=== PATIENT | male | born 1980 | race Caucasian/White ===

== ENCOUNTER → 2016-11-07 | Outpatient (CLI) | payer OTHER ==
[~2016-11-07] VITALS: Ht 185.4 cm; Wt 99.1 kg
[~2016-11-07] MED LIST: BUPRENORPHIN-N1 EACH SL; EFFEXOR XR75 MG PO; HYDROCODON-ACE1 EAC5 PO; IBUPROFEN 200200 M1 PO; MINOCIN50 MG PO; NORCO 10-325 T1 EACH PO; PREVACID30 MG PO; SUBOXONE 4 MG-1 EACH SL
--- NOTE | ~2016-11-07 | HPC ---
[facility] [place] [place] [address] PAIN MANAGEMENT CONSULTATION Name: ALEX MASON Room #: REG Seema [place]#: [id number] Admission: 11/07/16 Attend Phys: Yovani Carranza DO Discharge: Date of : 81 Report #: [id number] THIS REPORT FOR: //name// CC: Avis Carranza SUBJECTIVE: The patient is a very pleasant 36-year-old gentleman being treated for chronic pain syndrome requiring complex medication management status post multiple surgeries, left lower extremity. The patient has been stable on Suboxone 01/01, one-half tablet 3 times a day, limit 45 tablets/strips per month. Last urine drug screen 10/27/2015, was positive for prescribed medications. The patient prior had trouble with opiate habituation following surgeries, again he has had about 6 surgeries since the year 1999. Presently, he is doing remarkably well. Stable on current medications, physically active. He has 2 young children. He and his recently [place] a home [place]. With increased activities of moving has a little bit of increased pain in the ankle, though range of motion in that ankle is near normal. I gave the patient credit for doing physical therapy in rehab following the surgeries. He notes current medications are helpful, notes pain increases with activity, but he averages his pain a 5 on a 0-10 visual analog scale, describes it burning, aching sensation, primarily about the left foot and ankle. PHYSICAL EXAMINATION: Relatively unchanged, 36-year-old gentleman, BMI is 38.8 kilograms per meter squared. Vital signs stable. Gait is modestly antalgic. Again, fairly good range of motion in that left ankle, has a little bit of hyperpathia and allodynia. We reviewed the fact that opiate medications are being used to provide analgesia adequate to support activities of daily living, not attempting to achieve a specific pain score on the 0-10 Visual Analog Scale. The current opiate medications are providing sufficient analgesia to allow the patient to participate in activities of daily living. The patient is not exhibiting any aberrant behavior suggestive of drug diversion. The patient is not having any adverse reactions to medications. The patient is not suffering from daytime somnolence or mental acuity changes. The patient is managing opiate-induced constipation with appropriate pfac-oke-ujusmxh agents and dietary considerations. The patient was counseled on concern for caution with operating a motor vehicle while using opiate medications. A physical exam was performed and the patient's functional status was evaluated. All patients with back pain were advised against the bed rest greater than 4 days and were advised to return to normal activities. Pain score assessment was [address] [address] PAIN MANAGEMENT CONSULTATION Name: ALEX MASON [id number] Admission: 11/07/16 Attend Phys: Yovani Carranza DO Discharge: Date of : 81 Report #: [id number] noted and the treatment plan was reviewed with the patient. All current medications, both prescribed and OTC were reviewed and reconciled on the electronic medical record. Tobacco screening was accomplished and smoking cessation was advised when indicated. BMI was noted and diet/exercise modification was recommended for all patients following outside normal parameters. I reviewed with the patient today their responsibilities to safeguard prescription medications, reviewed their responsibility to utilize medications only as prescribed by the physician. They are to seek and receive pain medications only from 1 physician group ( [facility]). They are to use 1 pharmacy and keep the clinic informed if they change pharmacies. Their responsibilities include making followup visits in a timely fashion and to avoid abrupt discontinuation of medication usage. Their responsibilities further include bringing their medications (bottles from the pharmacy with residual pills) to the visit for possible confirmation of pill counts and the patient understands it is their responsibility to submit to random drug screens to ensure both that the medications prescribed are present, and that no other controlled substances are present. All prescriptions provided today were generated electronically. ASSESSMENT: Chronic pain syndrome requiring complex medication management, left lower extremity, gentleman with prior opiate habituation issues, very stable on current medication. RECOMMENDATIONS: 1. Urine drug screen today. No aberrant behavior suggestive for drug diversion, simply complying with our opiate consent to treat contract. 2. Renew current medication unchanged, Suboxone /, one-half three times a day, limit 45 tablets for 30 days. Film strip or tablet acceptable depending on insurance coverage. We reviewed opiate consent to treat contract. The patient is doing well currently. I spent a prolonged visit with the patient approximately 29 minutes from 11:21 to 11:50. The patient was discharged in good and stable condition. <ELECTRONICALLY SIGNED> By: Yovani Carranza DO 11/08/16 0948 [id number] Yovani Carranza DO /nt
[2016-11-07 11:15] VITALS: BP 117/85
== END | disposition home or self-care (01) ==
LOC: PAIN 06:59
DX: G89.4 Chronic pain syndrome (principal); Z98.890 Other specified postprocedural states; Z87.891 Personal history of nicotine dependence

== ENCOUNTER → 2017-02-06 | Outpatient (CLI) | payer OTHER ==
--- NOTE | ~2017-02-06 | HPC ---
[facility] [place] [address] [place] [address] PAIN MANAGEMENT CONSULTATION Name: ALEX MASON Room #: REG [facility] [place]#: [id number] Admission: 02/06/17 Attend Phys: Yovani Carranza DO Discharge: Date of : 81 Report #: [id number] THIS REPORT FOR: //name// CC: Avis Carranza The patient is a very pleasant 36-year-old gentleman, long treated for left lower extremity neuropathic pain, requiring high risk complex medication management. He initially presented to our clinic in May 2014, taking hydrocodone, but having a difficult time weaning off. He was referred to me in June 2014. We rotated to Suboxone. He has come down to 12 mg a day (1/2 Suboxone 8/2 three times a day). With this, he has been remarkably functional. Notes pain is generally about a 3 on a VAS. He is able to participate in activities of daily living. 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 He is . He is an active and involved parent. Notes that he does have difficulty sleeping due to pain, but he ices the ankle and with Suboxone, he has done reasonably well. He started to do increasing physical activity. He has been going to the gym, doing some circuit training. With the left ankle is a little difficult to do a lot of cardio work, i.e., treadmill or bicycle, but again with rapid circuit training, he does get his heart rate up. We reviewed the fact that opiate medications are being used to provide analgesia adequate to support activities of daily living, not attempting to achieve a specific pain score on the 0-10 Visual Analog Scale. The current opiate medications are providing sufficient analgesia to allow the patient to participate in activities of daily living. The patient is not exhibiting any aberrant behavior suggestive of drug diversion. The patient is not having any adverse reactions to medications. The patient is not suffering from daytime somnolence or mental acuity changes. The patient is managing opiate-induced constipation with appropriate fosp-jim-qlcqlaz agents and dietary considerations. The patient was counseled on concern for caution with operating a motor vehicle while using opiate medications. A physical exam was performed and the patient's functional status was evaluated. All patients with back pain were advised against the bed rest greater than 4 days and were advised to return to normal activities. Pain score assessment was noted and the treatment plan was reviewed with the patient. All current medications, both prescribed and OTC were reviewed and reconciled on the electronic medical record. Tobacco screening was accomplished and smoking cessation was advised when indicated. BMI was noted and diet/exercise modification was recommended for all patients following outside normal parameters. I reviewed with the patient today their responsibilities to safeguard prescription medications, reviewed their responsibility to utilize medications [address] [address] PAIN MANAGEMENT CONSULTATION Name: ALEX MASON Room #: REG [facility] [place]#: [id number] Admission: 02/06/17 Attend Phys: Yovani Carranza DO Discharge: Date of : 81 Report #: [id number] only as prescribed by the physician. They are to seek and receive pain medications only from 1 physician group ([facility]). They are to use 1 pharmacy and keep the clinic informed if they change pharmacies. Their responsibilities include making followup visits in a timely fashion and to avoid abrupt discontinuation of medication usage. Their responsibilities further include bringing their medications (bottles from the pharmacy with residual pills) to the visit for possible confirmation of pill counts and the patient understands it is their responsibility to submit to random drug screens to ensure both that the medications prescribed are present, and that no other controlled substances are present. All prescriptions provided today were generated electronically. PHYSICAL EXAMINATION: Otherwise unchanged, a 36-year-old gentleman, 6 feet 1 inch, 221 pounds, blood pressure 137/95, pulse 80s, and respirations are 18. He is alert and oriented to person, place, and time, judged to be a reasonable historian. Rises from chair easily. Gait is nominally antalgic. He actually has pretty good range of motion in the left ankle, albeit limited. Pain with range of motion. Urine drug screen at last visit 11/07/2016, was positive for prescribed medications. ASSESSMENT: Left lower extremity neuropathic pain requiring high risk complex medication management, stable on Suboxone 8/2, one half tablet 3 times a day, sub lingual. I have taken the liberty of writing for 3 months of current medication, follow up at that time, earlier if needed. <ELECTRONICALLY SIGNED> By: Yovani Carranza DO 02/07/17 0705 [id number] [id number] Yovani Carranza DO /nt
== END ==
LOC: PAIN 07:02
DX: M25.572 Pain in left ankle and joints of left foot (principal)

== ENCOUNTER → 2017-05-15 | Outpatient (CLI) | payer OTHER ==
[~2017-05-15] VITALS: Ht 185.4 cm; Wt 104.2 kg
--- NOTE | ~2017-05-15 | HPC ---
[facility] [place] [address] [place] [address] PAIN MANAGEMENT CONSULTATION Name: ALEX MASON Room #: REG [facility] [place]#: [id number] Admission: 05/15/17 Attend Phys: Yovani Carranza DO Discharge: Date of : 81 Report #: [id number] THIS REPORT FOR: //name// CC: Avis Carranza The patient is a very pleasant 36-year-old gentleman, whom I have treated for some time now, I believe came in to our care 03/03/2014. He has had chronic pain in his left ankle, status post multiple surgeries. He had had trouble with some opiate habituation and he has been remarkably stable on Suboxone now for several years. He uses 8/2 film strips that he cuts in half to quarter, uses this t.i.d. Last seen in pain clinic 02/06/2017. His last random urine drug screen was in 10/2015, positive for prescribed medications. We did order a buccal drug screen today. No aberrant behavior suggestive for drug diversion, simply complying with our opiate consent to treat contract. We reviewed the fact that opiate medications are being used to provide analgesia adequate to support activities of daily living, not attempting to achieve a specific pain score on the 0-10 Visual Analog Scale. The current opiate medications are providing sufficient analgesia to allow the patient to participate in activities of daily living. The patient is not exhibiting any aberrant behavior suggestive of drug diversion. The patient is not having any adverse reactions to medications. The patient is not suffering from daytime somnolence or mental acuity changes. The patient is managing opiate-induced constipation with appropriate cicz-nuo-rzjtofj agents and dietary considerations. The patient was counseled on concern for caution with operating a motor vehicle while using opiate medications. A physical exam was performed and the patient's functional status was evaluated. All patients with back pain were advised against the bed rest greater than 4 days and were advised to return to normal activities. Pain score assessment was noted and the treatment plan was reviewed with the patient. All current medications, both prescribed and OTC were reviewed and reconciled on the electronic medical record. Tobacco screening was accomplished and smoking cessation was advised when indicated. BMI was noted and diet/exercise modification was recommended for all patients following outside normal parameters. I reviewed with the patient today their responsibilities to safeguard prescription medications, reviewed their responsibility to utilize medications only as prescribed by the physician. They are to seek and receive pain medications only from 1 physician group ( [facility]). They are to use 1 pharmacy and keep the clinic informed if they change pharmacies. Their responsibilities include making followup visits in a timely fashion and to avoid abrupt discontinuation of medication usage. Their responsibilities further include bringing their medications (bottles from the pharmacy with residual pills) to the visit for possible confirmation of pill counts and the patient [address] [address] PAIN MANAGEMENT CONSULTATION Name: ALEX MASON Room #: REG [facility] [place]#: [id number] Admission: 05/15/17 Attend Phys: Yovani Carranza DO Discharge: Date of : 81 Report #: [id number] understands it is their responsibility to submit to random drug screens to ensure both that the medications prescribed are present, and that no other controlled substances are present. All prescriptions provided today were generated electronically. PHYSICAL EXAMINATION: Shows a 36-year-old gentleman, BMI is 30.3 kg per meter squared. Subjective pain score is 5 on a VAS. Pain is in the left ankle and foot, exacerbated with standing, walking and cold weather. Rises using armrest, modestly antalgic gait. Limited range of motion of the ankle, though remaining physical exam was unremarkable, vital signs stable as noted in the EMR. Does not use tobacco products. ASSESSMENT: Symptomatic chronic pain syndrome, left lower extremity with neuropathic pain, requiring high risk complex medication management. RECOMMENDATION: 1. Buccal swab as noted above. 2. Continue baseline medication including Suboxone 01/01 one-half t.i.d., dispensed 45 film strips. Follow up in 3 months for reevaluation. The patient is not currently in therapy. He had gone to . 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 He is . He is an active parent. In fact, just had a vasectomy after the of his son, now 2 months ago. He has, I believe, 4 and 8-year-old children at home. <ELECTRONICALLY SIGNED> By: Yovani Carranza DO 05/21/17 0808 [id number] Yovani Carranza DO /nt
[2017-05-15 13:46] VITALS: BP 129/80
== END ==
LOC: PAIN 07:11
DX: G89.4 Chronic pain syndrome (principal); M25.572 Pain in left ankle and joints of left foot; M79.2 Neuralgia and neuritis, unspecified; F11.20 Opioid dependence, uncomplicated; Z98.890 Other specified postprocedural states; Z79.899 Other long term (current) drug therapy

== ENCOUNTER → 2017-07-31 | Outpatient (CLI) | payer OTHER ==
[~2017-07-31] VITALS: Ht 188 cm; Wt 94.3 kg
--- NOTE | ~2017-07-31 | HPC ---
[facility] [place] [address] [place] [address] PAIN MANAGEMENT CONSULTATION Name: ALEX MASON Room #: REG [facility] [place]#: [id number] Admission: 07/31/17 Attend Phys: Yovani Carranza DO Discharge: Date of : 81 Report #: [id number] THIS REPORT FOR: //name// CC: Avis Carranza DATE OF SERVICE: 07/31/2017 The patient is a 36-year-old gentleman, well known to the [facility], being treated for chronic left ankle pain, status post multiple surgeries, requiring complex medication management with prior history of fairly aggressive opiate use in the past and difficulty with weaning. Last visit, we did a random buccal swab (05/15/2017), which was positive for buprenorphine and naloxone. Negative for any other medication. The patient notes today, medications continue to provide sufficient analgesia to participate in activities of daily living, rates the pain a 3 on a VAS, notes walking and standing exacerbate pain. Weather changes seem to make pain a little worse. Pain seems to be worse in the evening. To patient's credit, he has continued to be physically active. 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 He is an active and engaged parent. He tells me that he and his recently completed a 30-day protein based diet. He lost about 18 pounds. He felt that eschewing processed sugars and gluten as well as dairy products made him feel overall a little bit healthier. Did note some decrease inflammation in his knee, though the ankle pain remains problematic. Still has limited range of motion in the ankle, perhaps 50% baseline. Gait is generally tandem. We reviewed the fact that opiate medications are being used to provide analgesia adequate to support activities of daily living, not attempting to achieve a specific pain score on the 0-10 Visual Analog Scale. The current opiate medications are providing sufficient analgesia to allow the patient to participate in activities of daily living. The patient is not exhibiting any aberrant behavior suggestive of drug diversion. The patient is not having any adverse reactions to medications. The patient is not suffering from daytime somnolence or mental acuity changes. The patient is managing opiate-induced constipation with appropriate ymzf-rjc-ysqwqiv agents and dietary considerations. The patient was counseled on concern for caution with operating a motor vehicle while using opiate medications. A physical exam was performed and the patient's functional status was evaluated. All patients with back pain were advised against the bed rest greater than 4 days and were advised to return to normal activities. Pain score assessment was noted and the treatment plan was reviewed with the patient. All current medications, both prescribed and OTC were [place] [address] PAIN MANAGEMENT CONSULTATION Name: ALEX MASON [id number] Admission: 07/31/17 Attend Phys: Yovani Carranza DO Discharge: Date of : 81 Report #: [id number] electronic medical record. Tobacco screening was accomplished and smoking cessation was advised when indicated. BMI was noted and diet/exercise modification was recommended for all patients following outside normal parameters. I reviewed with the patient today their responsibilities to safeguard prescription medications, reviewed their responsibility to utilize medications only as prescribed by the physician. They are to seek and receive pain medications only from 1 physician group ( [facility]). They are to use 1 pharmacy and keep the clinic informed if they change pharmacies. Their responsibilities include making followup visits in a timely fashion and to avoid abrupt discontinuation of medication usage. Their responsibilities further include bringing their medications (bottles from the pharmacy with residual pills) to the visit for possible confirmation of pill counts and the patient understands it is their responsibility to submit to random drug screens to ensure both that the medications prescribed are present, and that no other controlled substances are present. All prescriptions provided today were generated electronically. ASSESSMENT: Chronic left ankle pain status post multiple surgeries in a patient who prior had issues with high-dose opiate escalation. He has been remarkably stable on Suboxone 01/01, typically using up to one-half tablet 3 times a day. RECOMMENDATIONS: I have taken the liberty of renewing current medication. Follow up in 2 months for reevaluation. <ELECTRONICALLY SIGNED> By: Yovani Carranza DO 08/01/17 0727 1220 [id number] Yovani Carranza DO /nt
[2017-07-31 10:28] VITALS: BP 129/82
== END ==
LOC: PAIN 07:23
DX: G89.29 Other chronic pain (principal); M25.572 Pain in left ankle and joints of left foot

== ENCOUNTER → 2017-12-08 | Outpatient (CLI) | payer OTHER ==
[~2017-12-08] VITALS: Ht 185.4 cm; Wt 92.8 kg
--- NOTE | ~2017-12-08 | HPC ---
[facility] [place] [address] [place] [address] PAIN MANAGEMENT CONSULTATION Name: ALEX MASON [facility] #: [id number] Admission: 12/08/17 Attend Phys: Yovani Carranza DO Discharge: Date of : 81 Report #: [id number] THIS REPORT FOR: //name// CC: Avis Carranza The patient is a 37-year-old gentleman who has been treated for chronic left ankle pain, status post multiple surgeries, requiring complex medication management. Prior history of fairly aggressive opiate use in the past with difficulty weaning. He has been remarkably stable on buprenorphine 8/2 mg tablet, typically taking one half tablet 3 times a day, limit 45 tablets for 30 days. Last seen in the pain clinic on 07/31/2017. Prior random drug screen on 05/15/2017 was positive for prescribed medications. The patient notes that he is doing reasonably well. He had limited processed sugars, gluten and dairy in his diet. States that he has continued to feel reasonably well with these changes. PHYSICAL EXAMINATION: Today notes a 37-year-old gentleman. BMI is 27 kilograms per meter squared. Blood pressure is 139/79, pulse 75, respirations 16. Alert and oriented to person, place and time, judged to be a reasonable historian. Rises from chair using armrest. Modestly antalgic gait. Slight limited range of motion of the right ankle, though gait is actually fairly tandem and symmetric. We reviewed the fact that opiate medications are being used to provide analgesia adequate to support activities of daily living, not attempting to achieve a specific pain score on the 0-10 Visual Analog Scale. The current opiate medications are providing sufficient analgesia to allow the patient to participate in activities of daily living. The patient is not exhibiting any aberrant behavior suggestive of drug diversion. The patient is not having any adverse reactions to medications. The patient is not suffering from daytime somnolence or mental acuity changes. The patient is managing opiate-induced constipation with appropriate vlfe-vfp-nzngprz agents and dietary considerations. The patient was counseled on concern for caution with operating a motor vehicle while using opiate medications. A physical exam was performed and the patient's functional status was evaluated. All patients with back pain were advised against the bed rest greater than 4 days and were advised to return to normal activities. Pain score assessment was noted and the treatment plan was reviewed with the patient. All current medications, both prescribed and OTC were reviewed and reconciled on the electronic medical record. Tobacco screening was accomplished and smoking cessation was advised when indicated. BMI was noted and diet/exercise modification was recommended for all patients following outside normal [address] [address] PAIN MANAGEMENT CONSULTATION Name: ALEX MASON Room #: [facility] [id number] Admission: 12/08/17 Attend Phys: Yovani Carranza DO Discharge: Date of : 81 Report #: [id number] parameters. I reviewed with the patient today their responsibilities to safeguard prescription medications, reviewed their responsibility to utilize medications only as prescribed by the physician. They are to seek and receive pain medications only from 1 physician group ( [facility]). They are to use 1 pharmacy and keep the clinic informed if they change pharmacies. Their responsibilities include making followup visits in a timely fashion and to avoid abrupt discontinuation of medication usage. Their responsibilities further include bringing their medications (bottles from the pharmacy with residual pills) to the visit for possible confirmation of pill counts and the patient understands it is their responsibility to submit to random drug screens to ensure both that the medications prescribed are present, and that no other controlled substances are present. All prescriptions provided today were generated electronically. ASSESSMENT: Chronic left ankle pain following multiple surgeries (6 surgeries from [id number]). Opiate habituation and tolerance over time, remarkably stable with current medication. RECOMMENDATIONS: I had a long discussion with the patient today. We have elected to continue baseline medication unchanged, Suboxone 8/2 one-half film strip or tablet (depending on insurance coverage) t.i.d., limit 45 "units" for 30 days. We will have the patient follow up with Dr. Bishop Heath in 3 months. <ELECTRONICALLY SIGNED> By: Yovani Carranza DO 12/10/17 0734 1236 1523 Yovani Carranza DO /nt
[2017-12-08 09:40] VITALS: BP 139/79
== END ==
LOC: PAIN 07:55
DX: M25.572 Pain in left ankle and joints of left foot (principal); Z79.891 Long term (current) use of opiate analgesic

== ENCOUNTER → 2018-03-23 | Outpatient (CLI) | payer OTHER ==
[~2018-03-23] VITALS: Ht 185.4 cm; Wt 95.3 kg
--- NOTE | ~2018-03-23 | HPC ---
[facility] [place] [address] PAIN MANAGEMENT CONSULTATION Name: ALEX MASON Room #: REG Seema Haynes#: [id number] Admission: 03/23/18 Attend Phys: Bishop Heath MD Discharge: Date of : 82 Report #: [id number] THIS REPORT FOR: //name// CC: Avis Heath DATE OF SERVICE: 03/23/2018 REASON FOR VISIT: Followup visit for chronic left ankle pain. HISTORY OF PRESENT ILLNESS: This was a longstanding patient of the clinic. I first saw him in 2013, referred him to Dr. Carranza to help him taper off of opioid analgesics. Dr. Carranza started him on Suboxone and has been seeing him ever since. The Suboxone does provide some pain relief at current dosing. He also has been using it cautiously and carefully and has shown no signs of misuse or abuse. We have discussed the fact that Suboxone can be misused. His current daily dose is no more than 12 mg of buprenorphine and [address] Carranza prescribes it as 45 tablets, he takes 1 to 1-1/2 tablets. We discussed the use of medication-assisted treatment in the treatment of addiction; however, in this situation he has never showed clear signs of addiction, simply felt that he was dependent on the opioids and wished not to be so. He is now fairly dependent on Suboxone and we talked about strategies that he might utilized to taper off of the Suboxone if his pain is more effectively managed. Overall, from a social standpoint, he is doing well. He is . He has 3 children and the eldest is 7. He has a 14-month at home. He has been active physically and exercises. He has been riding a bicycle. He has been playing and active with his kids. He has even been snowboarding and has altered his boots, so that it takes pressure off of his ankle. With this, he is able to manage his pain fairly effectively with the use of medication scoring it as a 3/10 with medication. He denies any side effects. He shows no misuse or abuse of any recreational drugs, tobacco or alcohol. He drinks alcohol infrequently, usually around sporting events. He has completed a risk assessment tool, which is low for any sort of addiction. His functional assessment tool is 15 today. He is on an opioid agreement, which was most recently signed on 05/15/2017. PHYSICAL EXAMINATION: GENERAL: He is a pleasant, well-groomed, well-spoken, articulate 37-year-old. VITAL SIGNS: Blood pressure is 135/85, heart rate 76, respirations 14, O2 sat 100%. BMI is 27.7. VITAL SIGNS: Pupils are equal, round, react to light. EOMs are intact. [facility] [address] [place] [address] PAIN MANAGEMENT CONSULTATION Name: ALEX MASON Room #: REG [facility] [place]#: [id number] Admission: 03/23/18 Attend Phys: Bishop Heath MD Discharge: Date of : 82 Report #: [id number] membranes are moist. EXTREMITIES: Examination of the feet reveals no obvious swelling. Good gait with no altered antalgic features. IMPRESSION: 1. Chronic left ankle pain following multiple surgeries between 2000 and 2010. 2. History of opioid use disorder and dependence, which has now been transferred to his Suboxone at a stable dose, maximum daily dose of 12/3. He uses tablets. PLAN: I provided him with 3 months of medication by call-in. I reviewed his most recent buccal drug screen, which was performed 11 months ago and was appropriate with no surprises. Continue to discuss the benefits of tapering the lowest effective dose and then perhaps eventually off Suboxone altogether in the next visits over the upcoming year. By: [id number] Bishop Heath MD /nt
[2018-03-23 10:10] VITALS: BP 135/85
== END ==
LOC: PAIN 07:13
DX: M25.572 Pain in left ankle and joints of left foot (principal); G89.29 Other chronic pain; Z79.899 Other long term (current) drug therapy

== ENCOUNTER → 2018-06-22 | Outpatient (CLI) | payer OTHER ==
[~2018-06-22] VITALS: Ht 185.4 cm; Wt 96.5 kg
--- NOTE | ~2018-06-22 | HPC ---
[facility] [address] [place] [address] PAIN MANAGEMENT CONSULTATION Name: MARLONALEX CASTELLANOS Room #: REG TEDSeema Haynes#: [id number] Admission: 06/22/18 Attend Phys: Bishop Heath MD Discharge: Date of : 82 Report #: [id number] THIS REPORT FOR: //name// CC: TRACI Heath DATE OF SERVICE: 06/22/2018 Followup visit for chronic left ankle pain. The patient returns to pain clinic today in followup for his chronic ankle pain. He provided me with additional history about onset of his pain following surgery and has had chronic pain ever since. He has been treated now with Suboxone for some time, initially by Dr. Carranza and now I have been prescribing the medication and he is doing well with it. He finds it provide substantial pain relief with no significant side effects and he wants to continue on the medication. It is cost effective. He receives 45 tablets or films and this equates to 1-1/2 tablets or films per day. This is 12 mg of buprenorphine and 3 mg of naloxone. He reports that he is able to do work and he is physically active with family. He feels that without the medication he would not be able to play with his children, ride a bicycle and doing other things that he is currently able to do with good pain control. He has shown no misuse or abuse. Prescription drug monitoring program information reviewed, shows that there are no issues or concerns, last prescription was filled on 05/22/2018. We did discuss one of the down sides of opioid management, which is the scrutiny, which he receives for issues such as life insurance. He no longer qualifies to 5 additional life insurance for his family. We discussed that I am hopeful that as time goes forward, he may be able to taper off his medication and the pain may actually get to the point where it is manageable without a buprenorphine. PHYSICAL EXAMINATION: Pleasant, outgoing gentleman. Blood pressure is 144/103, heart rate 79, respirations 14, BMI 28.1. Foot looks pretty good. He has a small scar laterally to just below the malleolus from his previous surgery. There is some tenderness there, mild allodynia. It does not extend to suggest any sort of dystrophy or complex regional pain syndrome. IMPRESSION: Chronic left foot pain status post ankle surgery. [address] [address] PAIN MANAGEMENT CONSULTATION Name: ALEX MASON Room #: REG AUSTEN Haynes#: [id number] Admission: 06/22/18 Attend Phys: Bishop Heath MD Discharge: Date of : 82 Report #: [id number] PLAN: I have renewed his medications under terms of written opioid agreement and I will see him back in the pain clinic in 3 months. By: [id number] Bishop Heath MD /nt
[2018-06-22 10:42] VITALS: BP 144/103
--- NOTE | 2018-06-22 10:47 | NUR ---
Pain Clinic Assessment: 1. History of Osteoarthritis: History of Rheumatoid Arthritis: 2. Height: 6 ft. 1 in. 185.4 cm. Weight: 212.8 lb. oz. 96.526 kg. Patient's BMI: 28.1 3. Vital Signs: BP: 144/103 Pulse: 79 Resp: 14 Temp: 02 Sat: 97 ECG Mon: 4. Pain Intensity: 4 5. Fall Risk: Dizziness: N Needs help standing or walking: N Fallen in the last 3 months: N Fall risk comments: 6. Patient on Blood Thinner: None 7. History of Hypertension: N 8. Opioid Therapy greater than 6 weeks: Y Opiate Contract Signed: 05/15/17 9. Risk Assessment Tool Provided: 0 LOW 10. Functional Assessment Tool: 11. Recreational Drug Use: Never Drug Type: Tobacco Use: Former Smoker Tobacco Type: Amount or Packs/day: How Many Years: Alcohol Use: Yes Frequency: Quant:
== END ==
LOC: PAIN 07:14
DX: M79.672 Pain in left foot (principal); G89.29 Other chronic pain; Z98.890 Other specified postprocedural states; Z79.899 Other long term (current) drug therapy

== ENCOUNTER → 2018-09-21 | Outpatient (CLI) | payer OTHER ==
[~2018-09-21] VITALS: Ht 185.4 cm; Wt 95.3 kg
[2018-09-21 09:08] VITALS: BP 122/85
--- NOTE | 2018-09-21 09:32 | NUR ---
Pain Clinic Assessment: 1. History of Osteoarthritis: NO History of Rheumatoid Arthritis: NO 2. Height: 6 ft. 1 in. 185.4 cm. Weight: 210.2 lb. oz. 95.346 kg. Patient's BMI: 27.7 3. Vital Signs: BP: 122/85 Pulse: 86 Resp: 16 Temp: 02 Sat: 99 ECG Mon: 4. Pain Intensity: 2 5. Fall Risk: Dizziness: N Needs help standing or walking: N Fallen in the last 3 months: N Fall risk comments: 6. Patient on Blood Thinner: None 7. History of Hypertension: N 8. Opioid Therapy greater than 6 weeks: Y Opiate Contract Signed: 05/15/17 9. Risk Assessment Tool Provided: 1 LOW 10. Functional Assessment Tool: 11. Recreational Drug Use: Never Drug Type: Tobacco Use: Former Smoker Tobacco Type: Amount or Packs/day: How Many Years: Alcohol Use: Yes Frequency: Quant:
--- NOTE | 2018-09-22 08:35 | HPC ---
[facility] [address] [place] [place] [address] PAIN MANAGEMENT CONSULTATION Name: MARLONALEXVERONICA MATHEW [id number] Admission: 09/21/18 ������������������ Attend Phys: Christine Hylton Discharge: ������������������ Date of : 81 Report #: [id number] THIS REPORT FOR: //name// CC: Christine Davison DATE OF SERVICE: 09/21/2018 CHIEF COMPLAINT: Chronic left ankle pain. HISTORY OF PRESENT ILLNESS: This is a very pleasant 38-year-old gentleman who returns to the pain clinic today for followup for his medication management for his chronic ankle pain. He tells me that his pain score is a 2-3 today. He said his ankle is feeling better with the warmer weather. He tells me it is his left lateral side of his ankle. It is worse with being on it all day, walking, sometimes certain weather changes, this winter was bad. Medications are very helpful as well as cold and distraction. He tells me that he does not have any problems with constipation that he is able to manage it with diet and does not feel overmedicated. He said some days he is able to take less of his Suboxone depending on the weather and his activity. He would like a refill of his medications today. ALLERGIES: PENICILLIN AND TRAMADOL. CURRENT MEDICATIONS: Suboxone 8/2 half of tablet every 8 hours p.r.n., ibuprofen p.r.n., Prevacid 30 mg daily and Effexor 75 mg daily. PQRS: 1. He denies any osteoarthritis or rheumatoid arthritis. 2. Height is 6 feet 1 inch. BMI is 27, weight is 210. Vital signs 122/85, pulse is 86, respirations 16, oxygen sat is 99. Pain score is 2/10. 3. Fall risk. Denies dizziness, does not need help walking or standing. Has not fallen in the last 3 months. The patient is not on any blood thinners or any antihypertensives. He has taken opioids greater than 6 weeks, therefore consent is on the chart. His risk assessment tool is low. His functional assessment is . 4. Recreational drug use, he denies, he is a former smoker and occasionally drinks alcohol. We did check the prescription monitoring system, the patient showing appropriately for his medications. He tells me he safeguards his medicines at all times. There is a drug screen on the chart that is appropriate. We will check another one in the next 3 months when he comes back. PHYSICAL EXAMINATION: GENERAL: This is an alert and orientated gentleman who appears his stated age, [facility] [address] [place] [address] PAIN MANAGEMENT CONSULTATION Name: MARLONALEXVERONICA MATHEW [facility] [id number] Admission: 09/21/18 ������������������ Attend Phys: Christine Hylton Discharge: ������������������ Date of : 81 Report #: [id number] very pleasant, placing his pain score today at 2/10. His affect is appropriate. HEENT: Normocephalic, atraumatic. Extraocular eye muscles are intact. Mucous membranes are moist. MUSCULOSKELETAL: He does have a scar on his left ankle from his previous surgery. He has some tenderness, now mild allodynia. He does walk with a slightly antalgic gait. He is able to move from sitting to standing without difficulty. His lower extremity strength judged to be 5/5 bilateral in all major muscle groups. We reviewed the fact that opiate medications are being used to provide analgesia adequate to support activities of daily living, not attempting to achieve a specific pain score on the 0-10 Visual Analog Scale. The current opiate medications are providing sufficient analgesia to allow the patient to participate in activities of daily living. The patient is not exhibiting any aberrant behavior suggestive of drug diversion. The patient is not having any adverse reactions to medications. The patient is not suffering from daytime somnolence or mental acuity changes. The patient is managing opiate-induced constipation with appropriate vqca-qnd-ywehgls agents and dietary considerations. The patient was counseled on concern for caution with operating a motor vehicle while using opiate medications. A physical exam was performed and the patient's functional status was evaluated. All patients with back pain were advised against the bed rest greater than 4 days and were advised to return to normal activities. Pain score assessment was noted and the treatment plan was reviewed with the patient. All current medications, both prescribed and OTC were reviewed and reconciled on the electronic medical record. Tobacco screening was accomplished and smoking cessation was advised when indicated. BMI was noted and diet/exercise modification was recommended for all patients following outside normal parameters. I reviewed with the patient today their responsibilities to safeguard prescription medications, reviewed their responsibility to utilize medications only as prescribed by the physician. They are to seek and receive pain medications only from 1 physician group ( [facility]). They are to use 1 pharmacy and keep the clinic informed if they change pharmacies. Their responsibilities include making followup visits in a timely fashion and to avoid abrupt discontinuation of medication usage. Their responsibilities further include bringing their medications (bottles from the pharmacy with residual pills) to the visit for possible confirmation of pill counts and the patient understands it is their responsibility to submit to random drug screens to ensure both that the medications prescribed are present, and that no other controlled substances are present. All prescriptions provided today were generated electronically. ASSESSMENT: [address] [address] PAIN MANAGEMENT CONSULTATION Name: ALEX MASON Room #: REG [facility].#: [id number] Admission: 09/21/18 ������������������ Attend Phys: Christine Hylton Discharge: ������������������ Date of : 81 Report #: [id number] 1. Chronic left foot pain status post ankle surgery. 2. Management of high-risk medications and returns a written opioid agreement. PLAN: 1. We discussed treatment options today, which included trying to taper his dose slightly, if he is able, he is going to try to take half of less film on some days and see if he is able to decrease his Suboxone dose getting him closer to that 8/2 one tablet half a day. He will try to do this over the next few months. He tells me that his pain is usually better in the summer months, so he may be able to reduce his medication. 2. Script was given today, though for Suboxone 8/2 0.5 sublingually 3 times a day, #45, for release today and 4-week and 8-week release. 3. Dr. Heath did see the patient and collaborated with care. ��������������������������������������������� <ELECTRONICALLY SIGNED> ���������������������������������������� By: Christine Hylton ��������������������������������������������� 09/22/18 0835 1132 Christine Hylton /nt
== END ==
LOC: PAIN 06:57
DX: G89.29 Other chronic pain (principal); M25.572 Pain in left ankle and joints of left foot; Z88.8 Allergy status to other drugs, medicaments and biological substances; Z88.0 Allergy status to penicillin; Z79.899 Other long term (current) drug therapy; Z87.891 Personal history of nicotine dependence; Z72.89 Other problems related to lifestyle; Z98.890 Other specified postprocedural states

== ENCOUNTER → 2018-12-24 | Outpatient (CLI) | payer OTHER ==
[~2018-12-24] VITALS: Ht 185.4 cm; Wt 94.4 kg
[2018-12-24 09:42] VITALS: BP 121/78
--- NOTE | 2018-12-24 10:00 | NUR ---
Pain Clinic Assessment: 1. History of Osteoarthritis: NO History of Rheumatoid Arthritis: NO 2. Height: 6 ft. 1 in. 185.4 cm. Weight: 208.2 lb. oz. 94.439 kg. Patient's BMI: 27.5 3. Vital Signs: BP: 121/78 Pulse: 80 Resp: 14 Temp: 02 Sat: 100 ECG Mon: 4. Pain Intensity: 2 5. Fall Risk: Dizziness: N Needs help standing or walking: N Fallen in the last 3 months: N Fall risk comments: 6. Patient on Blood Thinner: None 7. History of Hypertension: N 8. Opioid Therapy greater than 6 weeks: Y Opiate Contract Signed: 05/15/17 9. Risk Assessment Tool Provided: 1 LOW 10. Functional Assessment Tool: 11. Recreational Drug Use: Never Drug Type: Tobacco Use: Former Smoker Tobacco Type: Amount or Packs/day: How Many Years: Alcohol Use: Yes Frequency: Quant:
--- NOTE | 2018-12-24 12:57 | HPC ---
[facility] [address] [place] [place] [address] PAIN MANAGEMENT CONSULTATION Name: MARLONALEX PRIYANKA Room #: REG [facility]#: [id number] Admission: 12/24/18 ������������������ Attend Phys: Christine Hylton Discharge: ������������������ Date of : 81 Report #: [id number] THIS REPORT FOR: //name// CC: Christine Davison DATE OF SERVICE: 12/24/2018 CHIEF COMPLAINT: Chronic left ankle pain. HISTORY OF PRESENT ILLNESS: This is a very pleasant 38-year-old gentleman who returns to the pain clinic today for his ongoing right ankle and right foot pain. He tells me his pain score is a 2/10 today. He feels that his Suboxone is very helpful. He takes a half a tablet 3 times a day and this does control his pain. He denies any problems with constipation or daytime sleepiness. He tells me that he does have increased pain as the day progresses or worse when he has been walking a lot during the day. He does ice his ankle every evening. The medication and ice are very beneficial. ALLERGIES: PENICILLIN and TRAMADOL. CURRENT LIST OF MEDICATIONS: Suboxone 8/2, half a tablet every 8 hours; ibuprofen 800 mg 3 times a day; Prevacid 30 mg daily; and Effexor XR 75 mg daily. PQRS: 1. He denies any osteoarthritis or rheumatoid arthritis. 2. Height is 6 feet 1 inch, weight is 208. 3. VITAL SIGNS: Blood pressure 121/78, pulse is 80, respirations 14, oxygen sat is 100. 4. Pain score is 2/10. 5. Fall risk. Denies dizziness, does not need help walking or standing, has not fallen in the last 3 months. 6. The patient is not on any blood thinners or antihypertensives. 7. He takes opioid, is greater than 6 weeks; therefore, an opioid contract is on the chart. 8. His risk assessment tool is low. His functional assessment is 10/70. 9. Recreational drug use, he denies. He is a former smoker and does occasionally drink alcohol. We did check the prescription monitoring system. The patient is due to fill his pain medications today. We will check a random drug screen on him since it has been greater than one year. The patient tells me he does safeguard his medications. PHYSICAL EXAMINATION: [address] [address] PAIN MANAGEMENT CONSULTATION Name: ALEX MASON Room #: REG AUSTEN Haynes#: [id number] Admission: 12/24/18 ������������������ Attend Phys: Christine Hylton Discharge: ������������������ Date of : 82 Report #: [id number] GENERAL: This is an alert and orientated 38-year-old gentleman who appears his stated age, placing his current pain score today at 2/10. His affect is appropriate and he is alert and oriented. HEENT: Normocephalic, atraumatic. Extraocular eye muscles are intact. Mucous membranes are moist. MUSCULOSKELETAL: He has a scar on his left ankle from his previous surgery. Does complain of slight tenderness, walks with a slightly antalgic gait. His lower extremity strength judged to be 5/5 in all major muscle groups. We reviewed the fact that opiate medications are being used to provide analgesia adequate to support activities of daily living, not attempting to achieve a specific pain score on the 0-10 Visual Analog Scale. The current opiate medications are providing sufficient analgesia to allow the patient to participate in activities of daily living. The patient is not exhibiting any aberrant behavior suggestive of drug diversion. The patient is not having any adverse reactions to medications. The patient is not suffering from daytime somnolence or mental acuity changes. The patient is managing opiate-induced constipation with appropriate qevp-kfi-dedctvs agents and dietary considerations. The patient was counseled on concern for caution with operating a motor vehicle while using opiate medications. A physical exam was performed and the patient's functional status was evaluated. All patients with back pain were advised against the bed rest greater than 4 days and were advised to return to normal activities. Pain score assessment was noted and the treatment plan was reviewed with the patient. All current medications, both prescribed and OTC were reviewed and reconciled on the electronic medical record. Tobacco screening was accomplished and smoking cessation was advised when indicated. BMI was noted and diet/exercise modification was recommended for all patients following outside normal parameters. I reviewed with the patient today their responsibilities to safeguard prescription medications, reviewed their responsibility to utilize medications only as prescribed by the physician. They are to seek and receive pain medications only from 1 physician group ( [facility]). They are to use 1 pharmacy and keep the clinic informed if they change pharmacies. Their responsibilities include making followup visits in a timely fashion and to avoid abrupt discontinuation of medication usage. Their responsibilities further include bringing their medications (bottles from the pharmacy with residual pills) to the visit for possible confirmation of pill counts and the patient understands it is their responsibility to submit to random drug screens to ensure both that the medications prescribed are present, and that no other controlled substances are present. All prescriptions provided today were generated electronically. PLAN: [address] [address] PAIN MANAGEMENT CONSULTATION Name: ALEX MASON Room #: HUM[facility] Haynes#: [id number] Admission: 12/24/18 ������������������ Attend Phys: Christine Hylton Discharge: ������������������ Date of : 82 Report #: [id number] 1. We discussed treatment options with the patient today. The patient is doing quite well with his Suboxone for his chronic pain and denies any problems with side effects. Scripts given today for Suboxone 01/01, half a tablet every 8 hours, quantity 45 for release today, 4-week and 8-week refills. 2. The patient did give us a urine drug screen for random testing. 3. The patient is seen by Dr. Bishop Heath as well today who collaborated care. The patient will return in followup after 3 months. ��������������������������������������������� <ELECTRONICALLY SIGNED> ���������������������������������������� By: Christine Hylton ��������������������������������������������� 12/24/18 1257 [id number] 1150 Christine Hylton /nt
== END ==
LOC: PAIN 06:49
DX: M25.572 Pain in left ankle and joints of left foot (principal); G89.29 Other chronic pain

== ENCOUNTER → 2019-04-12 | Outpatient (CLI) | payer OTHER ==
[~2019-04-12] VITALS: Ht 185.4 cm; Wt 94.0 kg
[2019-04-12 09:31] VITALS: BP 131/79
--- NOTE | 2019-04-12 09:34 | NUR ---
Pain Clinic Assessment: 1. History of Osteoarthritis: NO History of Rheumatoid Arthritis: NO 2. Height: 6 ft. 1 in. 185.4 cm. Weight: 207.2 lb. oz. 93.985 kg. Patient's BMI: 27.3 3. Vital Signs: BP: 131/79 Pulse: 83 Resp: 16 Temp: 02 Sat: 98 ECG Mon: 4. Pain Intensity: 2 5. Fall Risk: Dizziness: N Needs help standing or walking: N Fallen in the last 3 months: N Fall risk comments: 6. Patient on Blood Thinner: None 7. History of Hypertension: N 8. Opioid Therapy greater than 6 weeks: Y Opiate Contract Signed: 05/15/17 9. Risk Assessment Tool Provided: 1 LOW 10. Functional Assessment Tool: 11. Recreational Drug Use: Never Drug Type: Tobacco Use: Former Smoker Tobacco Type: Amount or Packs/day: How Many Years: Alcohol Use: Yes Frequency: Quant:
--- NOTE | 2019-04-13 08:49 | HPC ---
[facility] [place] [address] PAIN MANAGEMENT CONSULTATION Name: ALEX MASON Room #: REG [facility] [id number] Admission: 04/12/19 Attend Phys: Christine Hylton Discharge: Date of : 81 Report #: [id number] THIS REPORT FOR: //name// CC: Christine Heath MD DATE OF SERVICE: 04/12/2019 CHIEF COMPLAINT: Chronic left ankle pain. HISTORY OF PRESENT ILLNESS: This is a very pleasant 38-year-old gentleman who returns to the pain clinic today for his ongoing left ankle pain as a result of numerous surgeries. He reports a pain score of 2/10 today. He finds his Suboxone very beneficial in controlling most of his pain as well as movement. He feels that using cold packs at the end of the day is also beneficial. His pain is increased when he is walking all day or has weather changes that do increase his pain. He feels that he is able to exercise as frequently as he would like, riding a bike and working out as long as he has his Suboxone. He denies any problems with constipation or daytime sleepiness and would like refills of his medication. ALLERGIES: PENICILLIN AND TRAMADOL. CURRENT LIST OF MEDICATIONS: Suboxone 8/2 half a tablet as needed, ibuprofen p.r.n., Prevacid and venlafaxine XR 75 mg daily. PQRS: 1. He denies any osteoarthritis or rheumatoid arthritis. 2. Height is 6 feet 1 inch, weight is 207 and BMI is 27. 3. Vital signs 131/79, pulse is 83, respirations 16, oxygen sat is 98. 4. Pain score is 2/10. 5. Denies dizziness, does not need help walking or standing, has not fallen in the last 3 months. 6. The patient is not on any blood thinners. He does not have a history of hypertension. 7. Opiate therapy is greater than 6 weeks; therefore, an opioid signed contract is on the chart. His risk assessment tool is low. Functional assessment is . 8. Recreational drug use, he denies. He is a former smoker and occasionally drinks alcohol. According to the prescription monitoring system, the patient is filling appropriately for his medications in a timely fashion by one physician. He does safeguard his meds at all time. There is a recent drug screen on the chart that [address] [address] PAIN MANAGEMENT CONSULTATION Name: ALEX MASON Room #: REG CL aDllas#: [id number] Admission: 04/12/19 Attend Phys: Christine Hylton Discharge: Date of : 81 Report #: [id number] is appropriate as well for his medications. PHYSICAL EXAMINATION: GENERAL: This is an alert and orientated 38-year-old who appears his stated age, placing his current pain score at 2/10 today. Affect is appropriate. HEENT: Normocephalic, atraumatic. Extraocular eye muscles are intact. Mucous membranes are moist. MUSCULOSKELETAL: He has scar on his left ankle from previous surgeries. He has tenderness on the left ankle as well, but range of motion is good in all planes. He walks with a slightly antalgic gait. His lower extremity strength judged to be 5/5 in all major muscle groups. He rises from the chair easily. PLAN: 1. We discussed treatment options with the patient today. The patient is doing well on his Suboxone requiring a quarter to a half b.i.d. Scripts given today for 45 tablets of 8/2 for today, 4-week and 8-week release. The patient denies any side effects with daytime sleepiness or constipation from this medicine. 2. The patient discussed that he feels like he is having better pain control, less pain in his ankle. We did discuss briefly decreasing his Suboxone in the future to 4/1 and see how he does on that lower dose for a while and then hopefully decrease it again since he continues to do well on his current regimen. We will keep him as it is currently, but he will think about it in the next 3 months about possible decrease in his medicine. 3. The patient is seen in collaboration with Dr. Bishop Heath. According to the CDC guidelines, patient's morphine mEq is 56 or less depending on his dose for the day. <ELECTRONICALLY SIGNED> By: Christine Hylton 04/13/19 0849 [id number] Christine Hylton /nt
== END ==
LOC: PAIN 06:51
DX: M25.572 Pain in left ankle and joints of left foot (principal); G89.29 Other chronic pain; Z79.899 Other long term (current) drug therapy; Z79.891 Long term (current) use of opiate analgesic; Z88.0 Allergy status to penicillin; Z88.1 Allergy status to other antibiotic agents

== ENCOUNTER → 2019-07-15 | Outpatient (CLI) | payer OTHER ==
[~2019-07-15] VITALS: Ht 185.4 cm; Wt 94.8 kg
[2019-07-15 14:26] VITALS: BP 141/93
--- NOTE | 2019-07-15 14:29 | NUR ---
Pain Clinic Assessment: 1. History of Osteoarthritis: NO History of Rheumatoid Arthritis: NO 2. Height: 6 ft. 1 in. 185.4 cm. Weight: 209.0 lb. oz. 94.802 kg. Patient's BMI: 27.6 3. Vital Signs: BP: 141/93 Pulse: 79 Resp: 16 Temp: 02 Sat: 97 ECG Mon: 4. Pain Intensity: 2-3 5. Fall Risk: Dizziness: N Needs help standing or walking: N Fallen in the last 3 months: N Fall risk comments: 6. Patient on Blood Thinner: None 7. History of Hypertension: N 8. Opioid Therapy greater than 6 weeks: Y Opiate Contract Signed: 05/15/17 9. Risk Assessment Tool Provided: 1 LOW 10. Functional Assessment Tool: 11. Recreational Drug Use: Never Drug Type: Tobacco Use: Former Smoker Tobacco Type: Amount or Packs/day: How Many Years: Alcohol Use: Yes Frequency: Special Occasions Quant: 1
--- NOTE | 2019-07-20 08:52 | HPC ---
[facility] [address] [address] PAIN MANAGEMENT CONSULTATION Name: ALEX MASON Room #: REG [facility] M..#: [id number] Admission: 07/15/19 Attend Phys: Christine Hylton Discharge: Date of : 82 Report #: [id number] THIS REPORT FOR: cc: Avis Davison MD,Avis Hylton,Christine ENRIQUE ~ THIS REPORT FOR: //name// CC: Christine Davison DATE OF SERVICE: 07/15/2019 CHIEF COMPLAINT: Chronic left ankle pain. HISTORY OF PRESENT ILLNESS: This is a very pleasant 38-year-old gentleman who returns to the pain clinic today for refill of his Suboxone that he uses to help treat his ongoing left ankle pain. Today, he is reporting a pain score 2/10. He feels that he was doing quite well on his current medicine regimen. He feels that the weather does make his pain worse and being up and walking on it all day that he feels the medication is very beneficial as well as distraction. He reports he is going to go skiing tomorrow, which is a sport he did not think he would ever be able to attempt again. He reports he does have some increased pain, but he is still able to enjoy it mostly on part of having his medication. He denies any problems with constipation or daytime sleepiness. ALLERGIES: PENICILLIN AND TRAMADOL. CURRENT LIST OF MEDICATIONS: Buprenorphine /2 p.r.n., ibuprofen, Prevacid and Effexor. PQRS: 1. He has osteoarthritis in his left ankle. Denies any rheumatoid arthritis. 2. Height is 6 feet 1 inch, weight is 209, BMI is 27. 3. Vital signs 141/93, pulse is 79, respirations 16, oxygen sat is 97%. 4. Pain score is 2/10. 5. Denies dizziness, does not need help walking or standing, has not fallen in the last 3 months. 6. The patient is not on any blood thinners or medicine for hypertension. Opioid therapy is greater than 6 weeks; therefore, an opioid signed contract is on the chart. Risk assessment tool is low. Functional assessment is . 7. Recreational drug use, he denies. He is a former smoker and occasionally drinks alcohol. According to the prescription monitoring system, the patient is filling appropriately for his medications, filling them in a timely fashion. His [facility] [address] [place] [address] PAIN MANAGEMENT CONSULTATION Name: ALEX MASON [facility] [id number] Admission: 07/15/19 Attend Phys: Christine Hylton Discharge: Date of : 82 Report #: [id number] morphine mEq is below 50 MMEs per day, less than 10. PHYSICAL EXAMINATION: GENERAL: This is alert and orientated 38-year-old gentleman who appears his stated age, placing his current pain score 2/10 today. Affect is appropriate. HEENT: Normocephalic, atraumatic. Extraocular eye muscles are intact. Mucous membranes are moist. MUSCULOSKELETAL: He has tenderness in his left ankle. The range of motion is good in all planes. He walks with an antalgic gait. His lower extremity strength judged to be 5/5 in all major muscle groups. He does have a scar in his left ankle from previous surgeries. We reviewed the fact that opiate medications are being used to provide analgesia adequate to support activities of daily living, not attempting to achieve a specific pain score on the 0-10 Visual Analog Scale. The current opiate medications are providing sufficient analgesia to allow the patient to participate in activities of daily living. The patient is not exhibiting any aberrant behavior suggestive of drug diversion. The patient is not having any adverse reactions to medications. The patient is not suffering from daytime somnolence or mental acuity changes. The patient is managing opiate-induced constipation with appropriate hxrp-ida-xkpjflw agents and dietary considerations. The patient was counseled on concern for caution with operating a motor vehicle while using opiate medications. PLAN: We discussed treatment options with the patient today. We will renew his Suboxone 01/01, he takes quarter to half twice a day as needed for pain, #45, for 30-day supply with 2 additional refills will be called to his pharmacy. The patient feels that these are very beneficial allowing him to be as active as he is able to be with limited side effects. The patient is seen today in collaboration with Dr. Bishop Heath, who we discussed the patient's care with him. The patient will return in 3 months. We did talk briefly about a new injection medication that has helped to relieve the patient's pain for 6-8 weeks that will be coming on the market later this year. The patient is interested in learning more about this medication when it becomes available. <ELECTRONICALLY SIGNED> By: Christine Hylton 07/20/19 [id number] Christine Hylton /ravin
== END ==
LOC: PAIN 07:49
DX: Z76.0 Encounter for issue of repeat prescription (principal); M25.572 Pain in left ankle and joints of left foot; I10 Essential (primary) hypertension; Z79.01 Long term (current) use of anticoagulants; Z79.899 Other long term (current) drug therapy; Z79.891 Long term (current) use of opiate analgesic; Z88.0 Allergy status to penicillin

== ENCOUNTER → 2019-10-11 | Outpatient (CLI) | payer OTHER ==
[~2019-10-11] VITALS: Ht 185.4 cm; Wt 94.4 kg
[2019-10-11 10:43] VITALS: BP 141/81
--- NOTE | 2019-10-11 10:50 | NUR ---
Pain Clinic Assessment: 1. History of Osteoarthritis: NO History of Rheumatoid Arthritis: NO 2. Height: 6 ft. 1 in. 185.4 cm. Weight: 208.2 lb. oz. 94.439 kg. Patient's BMI: 27.5 3. Vital Signs: BP: 141/81 Pulse: 80 Resp: 14 Temp: 02 Sat: 100 ECG Mon: 4. Pain Intensity: 3 5. Fall Risk: Dizziness: N Needs help standing or walking: N Fallen in the last 3 months: N Fall risk comments: 6. Patient on Blood Thinner: None 7. History of Hypertension: N 8. Opioid Therapy greater than 6 weeks: Y Opiate Contract Signed: 05/15/17 9. Risk Assessment Tool Provided: 1 LOW 10. Functional Assessment Tool: 11. Recreational Drug Use: Never Drug Type: Tobacco Use: Former Smoker Tobacco Type: Amount or Packs/day: How Many Years: Alcohol Use: Yes Frequency: Quant:
--- NOTE | 2019-10-12 10:02 | HPC ---
[facility] [address] [place] [address] PAIN MANAGEMENT CONSULTATION Name: ALEX MASON [facility] #: [facility] [id number] Admission: 10/11/19 Attend Phys: Christine Hylton Discharge: Date of : 82 Report #: [id number] THIS REPORT FOR: cc: Avis Davison MD, Ann K. MD Hocker,Christine ENRIQUE ~ CC: Bishop Heath MD DATE OF SERVICE: 10/11/2019 CHIEF COMPLAINT: Chronic left ankle pain. HISTORY OF PRESENT ILLNESS: This is a very pleasant 39-year-old gentleman who returns to the pain clinic today for refill of his Suboxone that he uses to help treat his ongoing left ankle pain. He reports his pain score 3/10, though it does increase in discomfort as the day progresses. He feels that he is having more pain posterior and laterally on his ankle lately, but he also reports that he has been doing much more activity than he had in the past. He does report as long as he uses his medication, an ice pack with an Kaushal wrap in the evening, his pain is well controlled. He reports that his pain is a dull aching pain, worse with walking and weather changes. He does report that he was able to go skiing in July. It did increase some of his pain, but he did enjoy himself on that trip and is looking forward to doing it in the future now that he knows he is able to ski again. ALLERGIES: PENICILLIN AND TRAMADOL. CURRENT LIST OF MEDICATIONS: Buprenorphine/naloxone 01/01, ibuprofen, Prevacid and Effexor. PQRS: 1. He denies any rheumatoid arthritis and has osteoarthritis in his left ankle. 2. Height is 6 feet 1 inch. Weight is 208, BMI is 27. 3. Vital signs 141/81, pulse is 80, respirations 14, oxygen sat is 100. Pain score is 3/10. 4. Fall risk. Denies dizziness, does not need help walking or standing, has not fallen in the last 3 months. 5. The patient is not on any blood thinners, does not take medicine for hypertension. His opioid therapy is greater than 6 weeks; therefore, an opioid signed contract is on the chart. Risk assessment tool is low. Functional assessment is . 6. Recreational drug use, he denies. He is a former smoker and occasionally drinks alcohol. According to the prescription monitoring system, he is filling appropriately. He is due to fill his medications this week. There is a recent drug screen on [address] [address] PAIN MANAGEMENT CONSULTATION Name: ALEX MASON Room #: REG [facility].#: [id number] Admission: 10/11/19 Attend Phys: Christine Hylton Discharge: Date of : 81 Report #: [id number] the chart that is appropriate as well for his medications. PHYSICAL EXAMINATION: GENERAL: This is alert and orientated 39-year-old gentleman who appears his stated age, placing his current pain score 3/10. He is a good historian and his affect is appropriate. HEENT: Normocephalic, atraumatic. Extraocular eye muscles are intact. He is wearing a mask. MUSCULOSKELETAL: He has tenderness in his left ankle. The lateral posterior area is tender to the touch. He walks with an antalgic gait. He has a well-healed scar from previous surgeries on his left ankle. His lower extremity strength judged to be 5/5 in all major muscle groups. We reviewed the fact that opiate medications are being used to provide analgesia adequate to support activities of daily living, not attempting to achieve a specific pain score on the 0-10 Visual Analog Scale. The current opiate medications are providing sufficient analgesia to allow the patient to participate in activities of daily living. The patient is not exhibiting any aberrant behavior suggestive of drug diversion. The patient is not having any adverse reactions to medications. The patient is not suffering from daytime somnolence or mental acuity changes. The patient is managing opiate-induced constipation with appropriate yeqi-tcb-uusokoa agents and dietary considerations. The patient was counseled on concern for caution with operating a motor vehicle while using opiate medications. PLAN: 1. We discussed treatment options with the patient today. The patient finds his medication very beneficial. We will renew his Suboxone 01/01, taking a quarter to a half twice a day, #45 for 1 month plus 2 additional refills. 2. The patient states that he does not experience any daytime sleepiness or significant constipation as a result of these medications. 3. The patient is seen in collaboration with Dr. Bishop Heath who did fill his prescriptions. <ELECTRONICALLY SIGNED> By: Christine Hylton 10/12/19 1002 [id number] [id number] Christine Hlyton /ravin
== END ==
LOC: PAIN 06:51
DX: M25.572 Pain in left ankle and joints of left foot (principal); Z88.0 Allergy status to penicillin; Z88.8 Allergy status to other drugs, medicaments and biological substances; Z79.899 Other long term (current) drug therapy

== ENCOUNTER → 2020-01-10 | Outpatient (CLI) | payer OTHER ==
[~2020-01-10] VITALS: Ht 185.4 cm; Wt 92.9 kg
[2020-01-10 09:31] VITALS: BP 145/83
--- NOTE | 2020-01-10 09:42 | NUR ---
Pain Clinic Assessment: 1. History of Osteoarthritis: NO History of Rheumatoid Arthritis: NO 2. Height: 6 ft. 1 in. 185.4 cm. Weight: 204.8 lb. oz. 92.897 kg. Patient's BMI: 27.0 3. Vital Signs: BP: 145/83 Pulse: 73 Resp: 14 Temp: 02 Sat: 100 ECG Mon: 4. Pain Intensity: 5 5. Fall Risk: Dizziness: N Needs help standing or walking: N Fallen in the last 3 months: N Fall risk comments: 6. Patient on Blood Thinner: None 7. History of Hypertension: N 8. Opioid Therapy greater than 6 weeks: Y Opiate Contract Signed: 05/15/17 9. Risk Assessment Tool Provided: 1 LOW 10. Functional Assessment Tool: 11. Recreational Drug Use: Never Drug Type: Tobacco Use: Former Smoker Tobacco Type: Amount or Packs/day: How Many Years: Alcohol Use: Yes Frequency: Quant:
--- NOTE | 2020-01-10 13:38 | HPC ---
[facility] [address] [place] [address] PAIN MANAGEMENT CONSULTATION Name: ALEX MASON Room #: [facility] [id number] Admission: 01/10/20 Attend Phys: Christine Hylton Discharge: Date of : 82 Report #: [id number] THIS REPORT FOR: cc: Avis Davison MD, Ann K. MD Hocker, Amanda CNS ~ CC: Bishop Heath MD DATE OF SERVICE: 01/10/2020 CHIEF COMPLAINT: Chronic left ankle pain. HISTORY OF PRESENT ILLNESS: This is a very pleasant 39-year-old gentleman who returns to the pain clinic today for refill of his medications that he uses to help treat his ongoing left ankle pain as a result of injury and multiple surgeries. He does report some increase in his anterior portion of his ankle. He feels that he may have a nerve impingement. It is mostly bothersome in the morning, after he is active pain does decrease. He continues to ride his bike and be as active as he was like even though his pain is increased. Today, he rates it at a 5/10, which is a dull aching pain. His medication as well as cold and distraction are very beneficial. The patient does report he recently went to [place] and was very active life while he was on vacation with his family. He felt that when he returned to this region he did have a few days of increased pain adapting to changes in weather. He denies daytime somnolence or constipation as a result of his medications. ALLERGIES: PENICILLIN AND TRAMADOL. CURRENT LIST OF MEDICATIONS: Suboxone 8/2 half a tablet every 8 hours, ibuprofen, pravastatin and Effexor. PQRS: He has osteoarthritis in his left ankle. Denies any rheumatoid arthritis. Height is 6 feet. Weight is 204. BMI is 27. Vital signs 145/83, pulse is 73, respirations 14, oxygen sat is 100, pain score is 5/10. Fall risk, denies dizziness, does not need help walking or standing, has not fallen in the last 3 months. He is not on any blood thinners or medicine for hypertension. Opioid therapy is greater than 6 weeks; therefore, an opioid signed contract is on the chart. Risk assessment is low. Functional assessment . 3. Recreational drug use, he denies. He is a former smoker and occasionally drinks alcohol. According to the prescription monitoring system, the patient is filling appropriately and due to fill his medications this week. His morphine milliequivalent according to the CDC guidelines is closely monitored by us and he is filling appropriately. Today, we will check a random drug screen since it has been greater than one year. [address] [address] PAIN MANAGEMENT CONSULTATION Name: MARLONALEX MURILLO Room #: REG [facility]#: [id number] Admission: 01/10/20 Attend Phys: Christine Hylton Discharge: Date of : 82 Report #: [id number] PHYSICAL EXAMINATION: GENERAL: This is alert and orientated 39-year-old gentleman who is well-developed, well-nourished. He is placing his current pain score at 5/10 today. He is a good historian. HEENT: Normocephalic, atraumatic. Extraocular eye muscles are intact. He is wearing a mask. MUSCULOSKELETAL: Tenderness in his left ankle. The left posterior area is tender to the touch as well as the anterior region. He walks with an antalgic gait. His lower extremity strength judged to be 5/5 in all major muscle groups. He has well-healed scars. ASSESSMENT: 1. Chronic pain syndrome requiring complex medical management. 2. Chronic ankle pain. We reviewed the fact that opiate medications are being used to provide analgesia adequate to support activities of daily living, not attempting to achieve a specific pain score on the 0-10 Visual Analog Scale. The current opiate medications are providing sufficient analgesia to allow the patient to participate in activities of daily living. The patient is not exhibiting any aberrant behavior suggestive of drug diversion. The patient is not having any adverse reactions to medications. The patient is not suffering from daytime somnolence or mental acuity changes. The patient is managing opiate-induced constipation with appropriate rgjs-hkl-ftqklaj agents and dietary considerations. The patient was counseled on concern for caution with operating a motor vehicle while using opiate medications. PLAN: 1. We discussed treatment options with the patient today. Overall, he finds his medication very beneficial. He does have flares from time to time, but feels that the medication allows him to be as active as he would like and enables him to do so with minimal side effects. We will have Dr. Bishop Heath give him his prescriptions for his Suboxone 8/2 half a tablet 3 times a day, #45, for today, 4 and 8-week release. 2. We will collect a random urine drug screen and has been greater than one year since our last screen for him. 3. The patient is seen in collaboration today with Dr. Bishop Heath. The patient will return in 3 months. <ELECTRONICALLY SIGNED> By: Christine Hylton 01/10/20 1338 1023 Yoseph Hylton /ravin
== END ==
LOC: PAIN 06:44
PROVIDERS: ATTEND Clinical Nurse Specialist Adult Health
DX: G89.4 Chronic pain syndrome (principal); Z88.8 Allergy status to other drugs, medicaments and biological substances; Z79.899 Other long term (current) drug therapy

== ENCOUNTER → 2020-04-13 | Outpatient (CLI) | payer OTHER ==
[~2020-04-13] VITALS: Ht 185.4 cm; Wt 96.2 kg
[2020-04-13 09:06] VITALS: BP 132/81
--- NOTE | 2020-04-13 09:14 | NUR ---
Pain Clinic Assessment: 1. History of Osteoarthritis: NO History of Rheumatoid Arthritis: NO 2. Height: 6 ft. 1 in. 185.4 cm. Weight: 212.0 lb. oz. 96.163 kg. Patient's BMI: 28.0 3. Vital Signs: BP: 132/81 Pulse: 73 Resp: 14 Temp: 02 Sat: 100 ECG Mon: 4. Pain Intensity: 3 5. Fall Risk: Dizziness: N Needs help standing or walking: N Fallen in the last 3 months: N Fall risk comments: 6. Patient on Blood Thinner: None 7. History of Hypertension: N 8. Opioid Therapy greater than 6 weeks: Y Opiate Contract Signed: 05/15/17 9. Risk Assessment Tool Provided: 1 LOW 10. Functional Assessment Tool: 11. Recreational Drug Use: Never Drug Type: Tobacco Use: Former Smoker Tobacco Type: Cigarettes Amount or Packs/day: 1 ppd How Many Years: 7 Alcohol Use: Yes Frequency: Special Occasions Quant: 1-2 drinks
--- NOTE | 2020-04-14 08:29 | HPC ---
[facility] [place] [address] PAIN MANAGEMENT CONSULTATION Name: ALEX MASON [id number] Admission: 04/13/20 Attend Phys: Christine Hylton Discharge: Date of : 82 Report #: [id number] THIS REPORT FOR: cc: Avis Davison MD, Ann K. MD Hocker, Amanda CNS ~ CC: Christine Heath MD DATE OF SERVICE: 04/13/2020 CHIEF COMPLAINT: Chronic left ankle pain. HISTORY OF PRESENT ILLNESS: This is a very pleasant 39-year-old gentleman who is well known to the pain clinic. Today, he returns for medication management that he uses to help treat his ongoing left ankle pain from numerous surgeries that he has had in the past. Today, he is reporting a pain score of 3/10. He feels that the Suboxone has been very beneficial in helping control his pain. It is an aching, burning pain, worse with activity and weather changes, but he does remain active, exercising as he is able and uses cold to the ankle and finds all of these beneficial. Typically the patient does not have issues with constipation, but in early March, he started having pain in his left lower quadrant of his abdomen. He felt that it was diverticulitis, but after about a week, he did go to the 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 He was required to have an overnight stay where they gave him fluids and Toradol and he had some constipation during that time. He said it was resolved on its own and he did not require any surgery. He reports now he is back to feeling normal without pain or constipation issues. Today, he would like refills of his medications from Dr. Heath. ALLERGIES: PENICILLIN and TRAMADOL. CURRENT MEDICATIONS: Suboxone 8/2 half of tablets sublingually every 8 hours, ibuprofen p.r.n., Prevacid and Effexor. PQRS: 1. He has osteoarthritis in his ankle. Denies any rheumatoid arthritis. 2. Height is 6 feet 1 inch, weight is 212, BMI is 28. Vital signs 132/81, pulse is 73, respirations 14, oxygen sat is 100, pain score is 3/10. 3. Fall risk. Denies dizziness, does not need help walking or standing, has not fallen in the last 3 months. 4. The patient is not on any blood thinners or medicine for hypertension. 5. His opioid therapy is greater than 6 weeks; therefore, an opioid signed contract [place] [address] PAIN MANAGEMENT CONSULTATION Name: ALEX MASON Room #: [facility] [id number] Admission: 04/13/20 Attend Phys: Christine Hylton Discharge: Date of : 82 Report #: [id number] 6. Risk assessment is low. Functional assessment . 7. Recreational drug use, he denies. He is a former smoker and occasionally drinks alcohol. According to the prescription monitoring system, the patient is filling appropriately for his medications, filling them in a timely fashion. According to his PDMP, his morphine milliequivalent is appropriate. There is a drug screen on the chart that is appropriate as well. PHYSICAL EXAMINATION: GENERAL: This is alert and orientated, well-developed, well-nourished 39-year-old gentleman who appears his stated age, placing his pain score today at 3/10. HEENT: Normocephalic, atraumatic. Extraocular eye muscles are intact. He is wearing a mask. MUSCULOSKELETAL: He has discomfort in his left ankle with slight edema with limited range of motion from previous surgeries. He has well-healed scars as well. The lateral posterior area is tender to the touch. His lower extremity strength is symmetrical at 5/5. We reviewed the fact that opiate medications are being used to provide analgesia adequate to support activities of daily living, not attempting to achieve a specific pain score on the 0-10 Visual Analog Scale. The current opiate medications are providing sufficient analgesia to allow the patient to participate in activities of daily living. The patient is not exhibiting any aberrant behavior suggestive of drug diversion. The patient is not having any adverse reactions to medications. The patient is not suffering from daytime somnolence or mental acuity changes. The patient is managing opiate-induced constipation with appropriate lipe-boa-sbotiaf agents and dietary considerations. The patient was counseled on concern for caution with operating a motor vehicle while using opiate medications. A physical exam was performed and the patient's functional status was evaluated. All patients with back pain were advised against the bed rest greater than 4 days and were advised to return to normal activities. Pain score assessment was noted and the treatment plan was reviewed with the patient. All current medications, both prescribed and OTC were reviewed and reconciled on the electronic medical record. Tobacco screening was accomplished and smoking cessation was advised when indicated. BMI was noted and diet/exercise modification was recommended for all patients following outside normal parameters. I reviewed with the patient today their responsibilities to safeguard prescription medications, reviewed their responsibility to utilize medications only as prescribed by the physician. They are to seek and receive pain medications only from 1 physician group ([facility]). They are to use [address] [address] PAIN MANAGEMENT CONSULTATION Name: ALEX MASON Room #: REG [facility]#: [id number] Admission: 04/13/20 Attend Phys: Christine Hylton Discharge: Date of : 82 Report #: [id number] pharmacy and keep the clinic informed if they change pharmacies. Their responsibilities include making followup visits in a timely fashion and to avoid abrupt discontinuation of medication usage. Their responsibilities further include bringing their medications (bottles from the pharmacy with residual pills) to the visit for possible confirmation of pill counts and the patient understands it is their responsibility to submit to random drug screens to ensure both that the medications prescribed are present, and that no other controlled substances are present. All prescriptions provided today were generated electronically. PLAN: We discussed treatment options with the patient today. He finds the Suboxone very beneficial. He found that during the hospitalization with his omentum infarct, he was required to take his full doses of Suboxone three times a day. Occasionally, he does get by with 2. We will phone in these prescriptions for Suboxone 01/01, #45, for today 4 week an 8-week release, then the patient will return in 3 months. The patient is seen today in collaboration with Dr. Heath who did see the patient as well. <ELECTRONICALLY SIGNED> By: Christine Hylton 04/14/20 0829 [id number] Christine Hylton /ravin
== END ==
LOC: PAIN 06:48
PROVIDERS: ATTEND Clinical Nurse Specialist Adult Health
DX: M25.572 Pain in left ankle and joints of left foot (principal); G89.29 Other chronic pain

== ENCOUNTER → 2020-07-10 | Outpatient (CLI) | payer OTHER ==
[~2020-07-10] VITALS: Ht 185.4 cm; Wt 97.2 kg
[2020-07-10 09:17] VITALS: BP 164/98
--- NOTE | 2020-07-10 09:22 | NUR ---
Pain Clinic Assessment: 1. History of Osteoarthritis: NO History of Rheumatoid Arthritis: NO 2. Height: 6 ft. 1 in. 185.4 cm. Weight: 214.2 lb. oz. 97.161 kg. Patient's BMI: 28.3 3. Vital Signs: BP: 164/98 Pulse: 94 Resp: 16 Temp: 02 Sat: 98 ECG Mon: 4. Pain Intensity: 4 5. Fall Risk: Dizziness: N Needs help standing or walking: N Fallen in the last 3 months: N Fall risk comments: 6. Patient on Blood Thinner: None 7. History of Hypertension: N 8. Opioid Therapy greater than 6 weeks: Y Opiate Contract Signed: 05/15/17 9. Risk Assessment Tool Provided: 1 LOW 10. Functional Assessment Tool: 11. Recreational Drug Use: Never Drug Type: Tobacco Use: Former Smoker Tobacco Type: Amount or Packs/day: How Many Years: Alcohol Use: Yes Frequency: Special Occasions Quant: 1
--- NOTE | 2020-07-11 10:11 | HPC ---
[facility] [address] [place] [address] PAIN MANAGEMENT CONSULTATION Name: ALEX MASON Room #: REG [facility].#: [id number] Admission: 07/10/20 Attend Phys: Christine Hylton Discharge: Date of : 82 Report #: [id number] THIS REPORT FOR: cc: Avsi Davison MD, Ann K. MD Hocker,Christine ENRIQUE ~ DATE OF SERVICE: 07/10/2020 CHIEF COMPLAINT: Chronic left ankle pain. HISTORY OF PRESENT ILLNESS: This is a very pleasant 39-year-old gentleman who returns to the pain clinic today for refill of his Suboxone that he uses to help treat his ongoing left ankle pain from previous surgery. Today, he is reporting pain score of 4/10. It is an aching, dull, burning sensation that is worse with weather changes and being on his feet during the day. He believes that the medications as well as cold or distraction has been very beneficial in treating his pain. He denies any opioid constipation or daytime drowsiness as a result of his medications. We discussed with the patient report that was sent from his insurance company of fills of oxycodone and hydrocodone. He reports to me that he had a root canal about 3 months ago and then in April, he had significant pain. He saw his dentist who referred him to an oral surgeon. Ultimately his tooth was removed due to it splitting. He is going to now have an implant. This happened over a weekend and he was in significant pain. He had stopped his Suboxone per his report and started taking hydrocodone, which did nothing for his pain then the oral surgeon provided him with oxycodone, which he did take for about 4 days and then started his Suboxone again. I did inform the patient that the next time this happens to please call our office and notify us of any prescriptions from other physicians due to his contract. This is a violation of his contract and could be dismissed from our clinic. The patient verbalizes understanding. He did show me where his teeth have been extracted. ALLERGIES: PENICILLIN AND TRAMADOL. CURRENT LIST OF MEDICATIONS: Suboxone, ibuprofen, Prevacid and Effexor. PQRS: 1. He denies any rheumatoid arthritis. 2. He has osteoarthritis in his left ankle. 3. Height is 6 feet 1 inch, weight is 214, BMI 28. Vital signs 164/98, pulse is 94, respirations 16, oxygen saturation 98%. Pain score is 4/10. 4. Fall risk. Denies dizziness, does not need help walking or standing, has not fallen in the last 3 months. The patient is not on any blood thinners medicine or hypertension meds. Opioid therapy is greater than 6 weeks; therefore, an opioid signed contract is on the chart. [place] [address] PAIN MANAGEMENT CONSULTATION Name: MARLONALEXVERONICA MATHEW [id number] Admission: 07/10/20 Attend Phys: Christine Hylton Discharge: Date of : 82 Report #: [id number] Functional assessment 60/70. 5. Recreational drug use, he denies. He is a former smoker and occasionally drinks alcohol. According to the prescription monitoring system, he is filling appropriately aside from the fact of those 2 prescriptions of oxycodone and hydrocodone, which were addressed, he will from now production control clerk if he has any fills from other physicians. His morphine milliequivalent is less than 30 MME's. PHYSICAL EXAMINATION: GENERAL: This is alert and orientated, well-developed, well-nourished, well-hydrated 39-year-old gentleman who appears his stated age, placing his current pain score at 4/10. HEENT: Normocephalic, atraumatic. Extraocular eye muscles are intact. Mucous membranes are moist. MUSCULOSKELETAL: He has a mildly antalgic gait. He has limited range of motion in his left ankle with a well-healed scar,his lower extremity strength judged to be 5/5 in all major muscle groups. IMPRESSION: 1. Chronic pain syndrome, requiring complex medical management. 2. Chronic ankle pain. PLAN: 1. We discussed treatment options with the patient today. We reviewed two aberrant scripts. The patient is reminded of his opioid agreement and he knows now to call if he does have any further prescriptions from dental work that he will need in the future. 2. Dr. Bishop Heath, who collaborated care today, has written prescriptions for his Suboxone 01/01, #45, for today, 4-week and 8-week release. The patient is getting ready to go on vacation tomorrow, which was one day early. We have written a vacation fill on his prescription and hopefully the pharmacy will fill those today for this patient. 3. The patient will follow up in 3 months. At that time, he will see Dr. Bishop Heath. <ELECTRONICALLY SIGNED> By: Christine Hylton 07/11/20 1011 [id number] Christine Hylton /nt
== END ==
LOC: PAIN 07:03
PROVIDERS: ATTEND Clinical Nurse Specialist Adult Health
DX: G89.4 Chronic pain syndrome (principal); M25.572 Pain in left ankle and joints of left foot; Z79.891 Long term (current) use of opiate analgesic

== ENCOUNTER → 2020-10-16 | Outpatient (CLI) | payer OTHER ==
[~2020-10-16] VITALS: Ht 185.4 cm; Wt 97.5 kg
[2020-10-16 09:37] VITALS: BP 134/79
--- NOTE | 2020-10-16 09:38 | NUR ---
Pain Clinic Assessment: 1. History of Osteoarthritis: NO History of Rheumatoid Arthritis: NO 2. Height: 6 ft. 1 in. 185.4 cm. Weight: 215.0 lb. oz. 97.524 kg. Patient's BMI: 28.4 3. Vital Signs: BP: 134/79 Pulse: 83 Resp: 16 Temp: 02 Sat: 97 ECG Mon: 4. Pain Intensity: 3 5. Fall Risk: Dizziness: N Needs help standing or walking: N Fallen in the last 3 months: N Fall risk comments: 6. Patient on Blood Thinner: None 7. History of Hypertension: N 8. Opioid Therapy greater than 6 weeks: Y Opiate Contract Signed: 05/15/17 9. Risk Assessment Tool Provided: 1 LOW 10. Functional Assessment Tool: 11. Recreational Drug Use: Never Drug Type: Tobacco Use: Former Smoker Tobacco Type: Amount or Packs/day: How Many Years: Alcohol Use: Yes Frequency: Special Occasions Quant: 1
== END ==
LOC: PAIN 07:09
PROVIDERS: ATTEND Anesthesiology Pain Medicine
DX: G89.4 Chronic pain syndrome (principal); Z79.891 Long term (current) use of opiate analgesic; Z72.89 Other problems related to lifestyle; Z79.899 Other long term (current) drug therapy; Z87.891 Personal history of nicotine dependence

== ENCOUNTER → 2021-01-22 | Outpatient (CLI) | payer OTHER ==
[~2021-01-22] VITALS: Ht 185.4 cm; Wt 97.1 kg
[2021-01-22 10:05] VITALS: BP 146/93
--- NOTE | 2021-01-22 10:10 | NUR ---
Pain Clinic Assessment: 1. History of Osteoarthritis: NO History of Rheumatoid Arthritis: NO 2. Height: 6 ft. 1 in. 185.4 cm. Weight: 214.0 lb. oz. 97.070 kg. Patient's BMI: 28.2 3. Vital Signs: BP: 146/93 Pulse: 74 Resp: 18 Temp: 02 Sat: 100 ECG Mon: 4. Pain Intensity: 3 5. Fall Risk: Dizziness: N Needs help standing or walking: N Fallen in the last 3 months: N Fall risk comments: 6. Patient on Blood Thinner: None 7. History of Hypertension: N 8. Opioid Therapy greater than 6 weeks: Y Opiate Contract Signed: 05/15/17 9. Risk Assessment Tool Provided: 1 LOW 10. Functional Assessment Tool: 11. Recreational Drug Use: Never Drug Type: Tobacco Use: Former Smoker Tobacco Type: Amount or Packs/day: How Many Years: Alcohol Use: Yes Frequency: Special Occasions Quant: 1
== END ==
LOC: PAIN 07:02
PROVIDERS: ATTEND Clinical Nurse Specialist Adult Health
DX: M25.572 Pain in left ankle and joints of left foot (principal); G89.4 Chronic pain syndrome; Z79.891 Long term (current) use of opiate analgesic; Z79.899 Other long term (current) drug therapy; Z72.89 Other problems related to lifestyle; Z87.891 Personal history of nicotine dependence; Z88.0 Allergy status to penicillin; Z88.1 Allergy status to other antibiotic agents

== ENCOUNTER → 2021-06-07 | Outpatient (CLI) | payer OTHER ==
[~2021-06-07] VITALS: Ht 185.4 cm; Wt 95.7 kg
[2021-06-07 12:39] VITALS: BP 140/94
--- NOTE | 2021-06-07 12:41 | NUR ---
Pain Clinic Assessment: 1. History of Osteoarthritis: left ankle History of Rheumatoid Arthritis: NO 2. Height: 6 ft. 1 in. 185.4 cm. Weight: 211.0 lb. oz. 95.709 kg. Patient's BMI: 27.8 3. Vital Signs: BP: 140/94 Pulse: 81 Resp: 18 Temp: 02 Sat: 100 ECG Mon: 4. Pain Intensity: 4 5. Fall Risk: Dizziness: N Needs help standing or walking: N Fallen in the last 3 months: N Fall risk comments: 6. Patient on Blood Thinner: None 7. History of Hypertension: N 8. Opioid Therapy greater than 6 weeks: Y Opiate Contract Signed: 05/15/17 9. Risk Assessment Tool Provided: 1 LOW 10. Functional Assessment Tool: 11. Recreational Drug Use: Never Drug Type: Tobacco Use: Former Smoker Tobacco Type: Amount or Packs/day: How Many Years: Alcohol Use: Yes Frequency: Quant:
== END ==
LOC: PAIN 10:44
PROVIDERS: ATTEND Clinical Nurse Specialist Adult Health
DX: G89.29 Other chronic pain (principal); M25.572 Pain in left ankle and joints of left foot; Z87.891 Personal history of nicotine dependence; Z88.0 Allergy status to penicillin; Z88.8 Allergy status to other drugs, medicaments and biological substances; Z79.899 Other long term (current) drug therapy